=== PATIENT | male | born 1955 ===

== ENCOUNTER 2019-09-29 20:43 | Observation (INO) ==
--- OUTSIDE RECORDS SUMMARY | 2019-09-29 20:46 | External Medical Summary | Continuity of Care Document ---
:1955 Author Name Bella Mohamud, Provider Address Unavailable Unavailable , Care Team Providers Name Role Phone Unavailable Unavailable Unavailable CRISTO Mohamud, VICKI Unavailable Unavailable KRIS Mohamud, ALLEGRA Bonds Unavailable Unavailable Unavailable Unavailable Unavailable Problems Difficulty reading due to visual problem (368.9) (H53.9) Hearing difficulty (389.9) (H91.90) Lyme disease (088.81) (A69.20) Lipid screening (V77.91) (Z13.220) Allergies and Adverse Reactions Codeine Derivatives (Allergy) Medications No Reported Medications , M.D. Refills: 0 Procedures History of Tympanoplasty Status: Complet ed Immunizations Tdap On: 22-Nov-2009 Family History Father Family history of alcohol abuse (V61.41) (Z81.1) Status: Act chantelle uncle Family history of alcohol abuse (V61.41) (Z81.1) Status: Act chantelle Mother Family history of malignant neoplasm (V16.9) (Z80.9) Status: Active Family history of malignant neoplasm of breast (V16.3) (Z80. 3) Status: Active Family history of Colon cancer (153.9) (C18.9) Status: Activ e Plan of Treatment Planned Observations Planned Goals not documented Results No Known Results Results not documented
--- OUTSIDE RECORDS SUMMARY | 2019-09-29 20:46 | External Medical Summary | Continuity of Care Document ---
:1955 Author Name Bella Mohamud, Provider Address Unavailable Unavailable , Care Team Providers Name Role Phone Unavailable Unavailable Unavailable CRISTO Mohamud, VICKI Unavailable Unavailable KRIS Mohamud, ALLEGRA Bonds Unavailable Unavailable Unavailable Unavailable Unavailable Problems Lipid screening (V77.91) (Z13.220) Lyme disease (088.81) (A69.20) Hearing difficulty (389.9) (H91.90) Difficulty reading due to visual problem (368.9) (H53.9) Allergies and Adverse Reactions Codeine Derivatives (Allergy) [...]
[2019-09-29] MEDS ORDERED: SODIUM CHLORIDE 0.9% 1000ML 1,000 ML IV ONE ×2 (20:58→22:02)
[2019-09-29] MEDS ORDERED: ONDANSETRON INJ 2 MG/ML 2 ML VIAL IV STA (21:06)
[2019-09-29 21:25] LABS: Hematocrit (blood only) 55.3 % (42-52); Mean Corpuscular Hemoglobin 32.1 pg (25-34); Mean Corpuscular Volume 88.8 fL (80-100); Mean Platelet Volume 10.4 fL (7.4-10.4); Platelet Count 340 K/uL (130-400); RDW Coefficient of Variation 12.8 % (11.5-14.5); RDW Standard Deviation 41.3 fL (36.4-46.3); Red Blood Count 6.23 M/uL (4.7-6.1); White Blood Count 23.87 K/uL (4.8-10.8)
[2019-09-29 21:35] LABS: Mean Corpuscular Hgb Conc 36.2 g/dL (32-36)
[2019-09-29 21:41] LABS: Albumin Level 4.8 gm/dl (3.4-5.0); BUN Creatinine Ratio 20.8 (10-20); Bilirubin Direct 0.1 mg/dl (0-0.2); Creatinine Clr Calc Pharmacy 19.1 ml/min; Est GFR (African American) 17.2; Est GFR (Non-African American) 14.8; Potassium 5.5 mmol/L (3.5-5.1)
[2019-09-29 21:43] LABS: Appearance Urine Cloudy (Clear); Bacteria Urine Automated Negative (Negative); Bilirubin Urine Negative (Negative); Blood Urine Negative (Negative); Color Urine Dark Yellow; Epithelial Cell Urine Auto 20-30 /lpf (0-5); Glucose Urine UA Negative (Negative); Ketones Urine Trace (Negative); Leukocyte Esterase Urine Negative (Negative); Nitrite Urine Negative (Negative); Protein Urine 1+ (Negative); Urobilinogen Urine Negative (Negative)
[2019-09-29 21:44] LABS: Total Protein 9.8 gm/dl (6.4-8.2)
[2019-09-29 21:58] LABS: Cast Urine Automated >30 /lpf (0-5); RBC Urine Automated 0-4 /hpf (0-4)
[2019-09-29] MEDS ORDERED: INSULIN HUMAN REGULAR PER UNIT 10 UNITS in SYRINGE 9.9 ML IV STA (22:19)
[2019-09-29] MEDS ORDERED: DEXTROSE 50% 50 ML SYRINGE IV STA (22:19)
[2019-09-29] MEDS ORDERED: SODIUM POLYSTYRENE SULFONATE 15G/60ML SUSP PO STA (22:19)
[2019-09-29] MEDS ORDERED: CALCIUM GLUCONATE 10% 1,000 MG in SODIUM CHLORIDE 0.9% 50 ML IV STA (22:19)
[2019-09-29 22:29] LABS: Basophils # (auto) 0.01 K/uL (0-0.2); Immature Granulocytes # (auto) 0.17 K/uL (0.00-0.02); Immature Granulocytes % (auto) 0.7 %; Lymphocytes % (auto) 5.9 %; Monocytes % (auto) 8.8 %; Neutrophils # (auto) 20.19 K/uL (1.4-6.5); Neutrophils % (auto) 84.6 %
[2019-09-30] MEDS: SODIUM CHLORIDE 0.9% 1000ML 1,000 ML IV SCH ×3 (00:14→18:05)
[2019-09-30] MEDS ORDERED: VANCOMYCIN HCL 1,500 MG in SODIUM CHLORIDE 0.9% 500 ML IV ONE (00:22)
[2019-09-30] MEDS ORDERED: CEFEPIME 2,000 MG/20 ML VIAL IV STA (00:22)
[2019-09-30] MEDS ORDERED: VANCOMYCIN CONSULT ACTIVE PRN (00:22)
--- NOTE | 2019-09-30 00:43 | Emergency Department Note ---
Entered by Jamee Aranda acting as a scribe for History of Present Illness General Chief complaint: Illness Stated complaint: ILLNESS Time Seen by Provider: 09/29/19 20:57 Source: patient Mode of arrival: ambulatory Limitations: no limitations History of Present Illness Onset (ago): day(s) 3 Radiation: non-radiation Pain Consistency: + constant Maximum Pain Intensity: 4 Current Pain Intensity: 4 Relieved By: + none Exacerbated By: + none Associated symptoms: + fever/chills (+chills, -fever) and + other (+dysuria, +diarrhea, +muscle pain in rib cage, arms and legs); no nausea/vomiting Treatments prior to arrival: none The patient is a 64 year old male who presents to the ED with complaints of a persistent illness. He states 3 days ago, he experienced diarrhea and the chills. He sat in the shower to try and warm up, until he needed to use the bathroom. He states he had a long, thin bowel movement that was "orange-jaxon" in color. He also complains of dysuria and muscle pain in his rib cage, arms and legs. He has been gagging but denies any vomiting. The patient rates his discomfort as a 4/10 in severity. He states he called his daughter who is a nurs e this evening and she told him to come to the ED. Home Medications Home Medications Medication Instructions Recorded Confirmed Type No Known Home Medications 09/29/19 09/29/19 History Allergies Allergy/AdvReac Type Severity Reaction Status Date / Time codeine Allergy Intermediate n/v Verified 09/29/19 23:10 Past Med/Surg History Medical History No significant past medical history Social History Preferred Language: Georgian Feels Safe at Home: Yes Smoking Status: Never smoker Review of Systems See HPI for pertinent positives & negatives. and A total of 10 systems reviewed and were otherwise negative Physical Exam Vital Signs Vital Signs - 24 hr 09/29/19 20:44 09/29/19 20:50 09/29/19 20:59 Temperature 36.4 C L Temperature Source Oral Pulse Rate 115 H 92 H Pulse Rate [Right Finger] Pulse Rate from SpO2 Sensor Pulse Rhythm Regular Respiratory Rate 22 20 Blood Pressure 129/95 Blood Pressure [Left Arm] Blood Pressure Mean 106 Blood Pressure Mean [Left Arm] Blood Pressure Position [Left Arm] Pulse Oximetry 97 95 Oxygen Delivery Method Room Air Room Air Room Air Sepsis Recent Fever Within 48 Hours No Sepsis New/Unexplained Change in Mental Status No Sepsis Action Taken by Nursing No Action Required 09/29/19 21:49 09/29/19 22:00 09/29/19 22:15 Temperature Temperature Source Pulse Rate 81 78 82 Pulse Rate [Right Finger] Pulse Rate from SpO2 Sensor Pulse Rhythm Respiratory Rate 20 15 20 Blood Pressure Blood Pressure [Left Arm] Blood Pressure Mean Blood Pressure Mean [Left Arm] Blood Pressure Position [Left Arm] Pulse Oximetry Oxygen Delivery Method Sepsis Recent Fever Within 48 Hours Sepsis New/Unexplained Change in Mental Status Sepsis Action Taken by Nursing 09/29/19 22:30 09/29/19 22:45 09/29/19 22:48 Temperature Temperature Source Pulse Rate 88 94 H 91 H Pulse Rate [Right Finger] Pulse Rate from SpO2 Sensor 92 H Pulse Rhythm Respiratory Rate 20 22 24 Blood Pressure 175/118 H Blood Pressure [Left Arm] Blood Pressure Mean 139 Blood Pressure Mean [Left Arm] Blood Pressure Position [Left Arm] Pulse Oximetry 99 Oxygen Delivery Method Sepsis Recent Fever Within 48 Hours Sepsis New/Unexplained Change in Mental Status Sepsis Action Taken by Nursing 09/29/19 23:48 Temperature Temperature Source Pulse Rate Pulse Rate [Right Finger] 105 H Pulse Rate from SpO2 Sensor Pulse Rhythm Respiratory Rate 18 Blood Pressure Blood Pressure [Left Arm] 157/102 H Blood Pressure Mean Blood Pressure Mean [Left Arm] 120 Blood Pressure Position [Left Arm] Sitting Pulse Oximetry 98 Oxygen Delivery Method Room Air Sepsis Recent Fever Within 48 Hours Sepsis New/Unexplained Change in Mental Status Sepsis Action Taken by Nursing GENERAL: He is oriented to person, place, and time. He appears well-developed and well-nourished. He does not appear distressed. HENT: Exam performed. - Head: Normocephalic and atraumatic. - Right Ear: External ear normal. No mastoid tenderness. - Left Ear: External ear normal. No mastoid tenderness. - Mouth/Throat: The oropharynx is clear and moist. No trismus in the jaw. No dental abscesses or uvula swelling. No oropharyngeal exudate or tonsillar abscesses. EYES: Conjunctivae and EOM are normal. Pupils are equal, round, and reactive to light. Right eye exhibits no discharge. Left eye exhibits no discharge. No scleral icterus. NECK: Normal range of motion. Neck supple. No JVD present. No spinous process tenderness present. No carotid bruit present. No rigidity. No tracheal deviation and normal range of motion present. No Brudzinski's sign and no Kernig's sign noted. CV: Tachycardic rate, regular rhythm, normal heart sounds and intact distal pulses. There is no peripheral edema. Palpable radial pulses bue. PULM/CHEST: Effort normal and breath sounds normal. No respiratory distress. No stridor. He has no wheezes. He has no rales. - Chest Wall: He exhibits no tenderness. ABD: The abdomen is soft. Bowel sounds are normal. He has no distension. No mass is present. There is no tenderness. There is no rebound, no guarding, no Jessica's sign and no tenderness at McBurney's point. Rovsig negative. MUSC/SKEL: Normal range of motion. There is no peripheral edema, tenderness or deformity. LYMPH: No cervical adenopathy. NEURO: He is alert and oriented to person, place, and time. He has normal strength. No cranial nerve deficit or sensory deficit. Coordination and gait normal. GCS eye subscore is 4. GCS verbal subscore is 5. GCS motor subscore is 6. Cerebellar tests wnl. SKIN: Skin is warm and dry. He is not diaphoretic. PSYCH: He has a normal mood and affect. Behavior is normal. Judgment and thought content normal. Course Course 2103: The patient was evaluated in room B11 and a complete history and physical were performed. 2204: Vital signs stable. Abs show leukocytosis of 23.87. Hemoglobin of 20. Sodium 124. Potassium 5.5. Creatinine 4.04. Urinalysis is not consistent with infection. At this time, it is thought that the patient's leukocytosis could be due to dehydration or sepsis. Given this, patient will be given a total of 30 cc/kg fluid bolus. Additional fluids ordered. Blood cultures will be sent. Lactic acid is still pending. EKG shows peaked T waves. Patient will be treated with calcium gluconate, Kayexalate, insulin 10 units regular IV push and 1 amp of D50. Garza catheter will be placed given the patient's acute kidney injury to measure urine output. Patient also have a CT of the abdomen as well as chest x-ray done to look for any potential infectious sources. 2235: Vital signs stable. Lactic acid 3.6. Patient is still receiving fluid bolus and after fluid bolus is completed a repeat lactic acid will be done. 0028: Vital signs are stable. Status post 30 CC per Kilo Bolus improved Lactate to 2.2. CT of the abdomen showed no obstructing calculi. X-Ray showed no pneumonia. Patient will be admitted and treated with IV Vancomycin and Cefepime empirically for sepsis. He has been admitted to Dr. Abad. I discussed the patients case with Dr. Abad, [facility] Hospitalist. The patient will be further evaluated. Administered Medications Sodium Chloride (Nss 1000ml) 1,000 mls @ 125 mls/hr IV .Q8H DEVIN Stop: 10/29/19 23:44 Last Admin: 09/30/19 00:14 Dose: 125 mls/hr Documented by: [id number] Discontinued Medications Dextrose (Dextrose 50%) 50 ml IV NOW STA Stop: 09/29/19 22:20 Last Admin: 09/29/19 23:03 Dose: 50 ml Documented by: [id number] Sodium Chloride (Nss 1000ml) 1,000 mls @ 999 mls/hr IV .Q1H1M ONE Stop: 09/29/19 21:58 Last Infusion: 09/29/19 22:35 Dose: 0 mls/hr Documented by: [id number] Admin: 09/29/19 21:31 Dose: 999 mls/hr Documented by: [id number] Sodium Chloride (Nss 1000ml) 1,000 mls @ 999 mls/hr IV .Q1H1M ONE Stop: 09/29/19 23:02 Last Infusion: 09/29/19 23:30 Dose: 0 mls/hr Documented by: [id number] Admin: 09/29/19 22:16 Dose: 999 mls/hr Documented by: [id number] Calcium Gluconate 1,000 mg/ (Sodium Chloride) 60 mls @ 240 mls/hr IV NOW STA Stop: 09/29/19 22:33 Last Infusion: 09/29/19 23:33 Dose: 0 mls/hr Documented by: [id number] Admin: 09/29/19 23:11 Dose: 240 mls/hr Documented by: [id number] Insulin Human Regular 10 units (/ Syringe) 9.9 mls @ 3 mls/sec IV ONE STA Stop: 09/29/19 22:20 Last Admin: 09/29/19 23:03 Dose: 3 mls/sec Documented by: [id number] Cosigned by: [id number] Cefepime HCl (Maxipime) 2,000 mg in 20 mls @ 5 mls/min IV NOW STA; Protocol Stop: 09/30/19 00:25 Last Admin: 09/30/19 00:30 Dose: 5 mls/min Documented by: [id number] Ondansetron HCl (Zofran) 4 mg IV NOW STA Stop: 09/29/19 21:07 Last Admin: 09/29/19 21:31 Dose: 4 mg Documented by: [id number] Sodium Polystyrene Sulfonate (Kayexalate) 15 gm PO NOW STA Stop: 09/29/19 22:20 Last Admin: 09/29/19 23:15 Dose: 15 gm Documented by: [id number] Critical Care Time Critical Care Time: Yes Total Critical Care Time: 76 I have personally spent 76 minutes of critical care time in the direct management of this patient. This includes bedside care, interpretation of diagnostic studies, and testing, discussion with consultants, patient, and family members, and other required patient management activities. This 76 minutes is in excess of all separately billable procedures. Medical Decision Making Medical Records Attestation: I reviewed the patient's medical records. Home Medications Current Medication List: was personally reviewed by me Laboratory Data Attestation: I reviewed the patient's lab results. Result diagrams: 09/29/19 21:06 09/29/19 21:06 Lab Results 09/29/19 09/29/19 09/29/19 Range/Units 21:06 21:06 21:06 WBC 23.87 H (4.8-10.8) K/uL RBC 6.23 H (4.7-6.1) M/uL Hgb 20.0 H (14.0-18.0) g/dL Hct 55.3 H (42-52) % MCV 88.8 (80-100) fL MCH 32.1 (25-34) pg MCHC 36.2 H (32-36) g/dL RDW Std Deviation 41.3 (36.4-46.3) fL RDW Coeff of Tatiana 12.8 (11.5-14.5) % Plt Count 340 (130-400) K/uL MPV 10.4 (7.4-10.4) fL Immature Gran % (Auto) 0.7 % Neut % (Auto) 84.6 % Lymph % (Auto) 5.9 % [place] % (Auto) 8.8 % Eos % (Auto) 0.0 % Baso % (Auto) 0.0 % Immature Gran # (Auto) 0.17 H (0.00-0.02) K/uL Neut # (Auto) 20.19 H (1.4-6.5) K/uL Lymph # (Auto) 1.40 (1.2-3.4) K/uL [place] # (Auto) 2.10 H (0.11-0.59) K/uL Eos # (Auto) 0.00 (0-0.5) K/uL Baso # (Auto) 0.01 (0-0.2) K/uL Sodium 124 L (136-145) mmol/L Potassium 5.5 H (3.5-5.1) mmol/L Chloride 92 L (98-107) mmol/L Carbon Dioxide 19 L (21-32) mmol/L Anion Gap 14.0 H (3-11) BUN 84 H (7-18) mg/dl Creatinine 4.04 H (0.6-1.4) mg/dl Est Cr Clr Drug Dosing 19.1 ml/min Est GFR ( Amer) 17.2 Est GFR (Non-Af Amer) 14.8 BUN/Creatinine Ratio 20.8 H (10-20) Glucose 180 H (70-99) mg/dl Lactate 3.6 H* (0.4-2.0) mmol/L Calcium 10.0 (8.5-10.1) mg/dl Total Bilirubin 1.0 (0.2-1) mg/dl Direct Bilirubin 0.1 (0-0.2) mg/dl AST 45 H (15-37) U/L ALT 28 (12-78) U/L Alkaline Phosphatase 111 (45-117) U/L Total Protein 9.8 H (6.4-8.2) gm/dl Albumin 4.8 (3.4-5.0) gm/dl Lipase 369 (73-393) U/L Urine Color Urine Appearance (Clear) Urine pH (4.5-7.5) Ur Specific [place] (1.000-1.030) Urine Protein (Negative) Urine Glucose (UA) (Negative) Urine Ketones (Negative) Urine Blood (Negative) Urine Nitrite (Negative) Urine Bilirubin (Negative) Urine Urobilinogen (Negative) Ur Leukocyte Esterase (Negative) Urine WBC (Auto) (0-5) /hpf Urine RBC (Auto) (0-4) /hpf U Hyaline Cast (Auto) (0-5) /lpf U Epithel Cells (Auto) (0-5) /lpf Urine Bacteria (Auto) (Negative) Urine Yeast 09/29/19 09/29/19 Range/Units 21:15 23:01 WBC (4.8-10.8) K/uL RBC (4.7-6.1) M/uL Hgb (14.0-18.0) g/dL Hct (42-52) % MCV (80-100) fL MCH (25-34) pg MCHC (32-36) g/dL RDW Std Deviation (36.4-46.3) fL RDW Coeff of Tatiana (11.5-14.5) % Plt Count (130-400) K/uL MPV (7.4-10.4) fL Immature Gran % (Auto) % Neut % (Auto) % Lymph % (Auto) % [place] % (Auto) % Eos % (Auto) % Baso % (Auto) % Immature Gran # (Auto) (0.00-0.02) K/uL Neut # (Auto) (1.4-6.5) K/uL Lymph # (Auto) (1.2-3.4) K/uL [place] # (Auto) (0.11-0.59) K/uL Eos # (Auto) (0-0.5) K/uL Baso # (Auto) (0-0.2) K/uL Sodium (136-145) mmol/L Potassium (3.5-5.1) mmol/L Chloride (98-107) mmol/L Carbon Dioxide (21-32) mmol/L Anion Gap (3-11) BUN (7-18) mg/dl Creatinine (0.6-1.4) mg/dl Est Cr Clr Drug Dosing ml/min Est GFR ( Amer) Est GFR (Non-Af Amer) BUN/Creatinine Ratio (10-20) Glucose (70-99) mg/dl Lactate 2.2 H* (0.4-2.0) mmol/L Calcium (8.5-10.1) mg/dl Total Bilirubin (0.2-1) mg/dl Direct Bilirubin (0-0.2) mg/dl AST (15-37) U/L ALT (12-78) U/L Alkaline Phosphatase (45-117) U/L Total Protein (6.4-8.2) gm/dl Albumin (3.4-5.0) gm/dl Lipase (73-393) U/L Urine Color Dark Yellow Urine Appearance Cloudy A (Clear) Urine pH 5.0 (4.5-7.5) Ur Specific [place] 1.030 (1.000-1.030) Urine Protein 1+ H (Negative) Urine Glucose (UA) Negative (Negative) Urine Ketones Trace H (Negative) Urine Blood Negative (Negative) Urine Nitrite Negative (Negative) Urine Bilirubin Negative (Negative) Urine Urobilinogen Negative (Negative) Ur Leukocyte Esterase Negative (Negative) Urine WBC (Auto) 1-5 (0-5) /hpf Urine RBC (Auto) 0-4 (0-4) /hpf U Hyaline Cast (Auto) >30 H (0-5) /lpf U Epithel Cells (Auto) 20-30 H (0-5) /lpf Urine Bacteria (Auto) Negative (Negative) Urine Yeast Not Reportable Imaging Data My Impression: CHEST X-RAY Airway is clear. No acute infiltrate. No pneumothorax. No bony fracture. No free air under the diaphragm. X-Ray is negative. Emphysematous change. Radiologist's Impression: Radiology results as stated below per my review and the radiologist's interpretation: CT ABDOMEN PELVIS WITHOUT CONTRAST No hydronephrosis or ureterolithiasis is seen. Bowel loops are nondilated. The appendix is normal. No acute focal inflammatory changes are seen within the abd omen or pelvis. No inguinal hernia or acute inflammatory process seen within the left groin. Radiologist: Dr. Abhi Isabel MD ECG Data Attestation: I personally reviewed and interpreted this ECG as follows: Indication: + weakness Rate (beats per minute): 79 Rhythm: + sinus rhythm ECG Intervals/blocks: + Normal QRS, + Normal OR and + Normal QT-c ECG ST segments: no ST depression and no ST elevation ECG Findings: + Peaked T waves (from leads V3 to V5) Blood Pressure Blood Pressure Findings: Elevated blood pressure Blood Pressure Disposition: further management by hospitalist ROB Narrative 2103: The patient was evaluated in room B11 and a complete history and physical were performed. 2205: Vital signs stable. Abs show leukocytosis of 23.87. Hemoglobin of 20. Sodium 124. Potassium 5.5. Creatinine 4.04. Urinalysis is not consistent with infection. At this time, it is thought that the patient's leukocytosis could be due to dehydration or sepsis. Given this, patient will be given a total of 30 cc/kg fluid bolus. Additional fluids ordered. Blood cultures will be sent. Lactic acid is still pending. EKG shows peaked T waves. Patient will be destinee ated with calcium gluconate, Kayexalate, insulin 10 units regular IV push and 1 amp of D50. Garza catheter will be placed given the patient's acute kidney injury to measure urine output. Patient also have a CT of the abdomen as well as chest x-ray done to look for any potential infectious sources. 2235: Vital signs stable. Lactic acid 3.6. Patient is still receiving fluid bolus and after fluid bolus is completed a repeat lactic acid will be done. 0028: Vital signs are stable. Status post 30 CC per Kilo Bolus improved Lactate to 2.2. CT of the abdomen showed no obstructing calculi. X-Ray showed no pneumonia. Patient will be admitted and treated with IV Vancomycin and Cefepime empirically for sepsis. He has been admitted to Dr. Abad. I discussed the patients case with Dr. Abad, [facility] Hospitalist. The patient will be further evaluated. Impression & Plan Hyperkalemia, SUSANA (acute kidney injury), Sepsis, Hyponatremia Discharge Plan Visit Data Chief Complaint: Illness Stated Complaint: ILLNESS ED Provider: Jasper Nicole Discharge Problem: Hyperkalemia, SUSANA (acute kidney injury), Sepsis, Hyponatremia Forms Stand Alone Forms: My [facility] Prescriptions Prescriptions: No Action No Known Home Medications RF: 0 The scribe's documentation has been prepared under my direction and personally reviewed by me in its entirety. I confirm that the note above accurately reflects all work, treatment, procedures, and medical decision making performed by me.
--- NOTE | 2019-09-30 01:21 | History & Physical Report ---
Date of Service September 30, 2019 Assessment & Plan (1) Sepsis: Sepsis due to presumed prostatitis/moderately severe dehydration/BPH with OBST,LUTS- Patient did receive 2 L normal saline bolus per septic protocol in the ED. Continue normal saline 125 mils per hour. Follow urine culture and sensitivity. Follow blood cultures. Patient was given vancomycin IV and cefepime IV in the ED. Present on Admission?: Yes (2) SUSANA (acute kidney injury): See above Continue IV fluid rehydration as noted above. Continue treatment for postobstructive process. Discontinue vancomycin IV after first dose received in ED. Placed on daptomycin IV and ceftriaxone IV. Present on Admission?: Yes (3) BPH loc w urin obs/LUTS: Patient will be given first dose of tamsulosin 0.4 mg in the ED, and then at bedtime Present on Admission?: Yes (4) Hyperkalemia: Potassium level was 5.5 upon admission. He received 2 L normal saline, Kayexalate, calcium gluconate 1 g IV and 1 amp of D50 with 10 units of regular insulin IV as ordered by the ED. We will continue normal saline, and repeat laboratories in the a.m. Present on Admission?: Yes (5) Hyponatremia: Hyponatremia secondary to acute kidney injury due to moderately severe dehydration. Continue normal saline IV. Repeat laboratories in the a.m. Present on Admission?: Yes (6) Dehydration, moderate: Rehydration as noted above. Present on Admission?: Yes (7) Urinary retention with incomplete bladder emptying: Continue Garza catheter placed in the ED. We will give tamsulosin 0.4 mg p.o. x1 now, and then at bedtime. Consult urology. Present on Admission?: Yes History of Present Illness Chief Complaint: The patient presents to the emergency department, due to the urging of his daughter, due to 3 days of intermittent fevers, chills and shakes, during which time he would treat himself by taking intermittent warm soaks. Primary Care Provider: Daksha Franco MD The patient is a 64-year-old male with no significant past medical history, who presents to the emergency department with 3 days of persistent symptoms of intermittent fevers, chills and shakes. He denies any recent travels or sick exposures. He had significantly decreased oral intake to both liquids and solids during this time as well. Work-up in the emergency department included abnormal laboratories suggesting acute neutrophilic leukocytosis, hyperglycemia, lactic acidosis, acute renal failure and polycythemia, suggestive of significant dehydration. Imaging studies included CT of the abdomen pelvis which showed thick-walled urinary bladder. Patient did have Garza catheter placed in the ED. For a potassium of 5.5, he was given, in addition to the septic protocol 2 L normal saline, he was also given 1 amp of D50 +10 units of regular insulin IV, calcium gluconate 1 g IV and Kayexalate by the ED protocols. The patient also did report frequent bowel movements and urination as he was attempting to treat himself with frequent soaks, interspersed with resting in bed. Allergies Allergy/AdvReac Type Severity Reaction Status Date / Time codeine Allergy Intermediate n/v Verified 09/29/19 23:10 Home Medications Home Medications Medication Instructions Recorded Confirmed Type No Known Home Medications 09/29/19 09/29/19 History Past Med/Surg History Medical History No significant past medical history Social History Preferred Language: Colombian Communication Ability: Effective Physician Primary Care Sports Medicine Required: No Beliefs That Will Affect Care: None Current Living Situation: Family Other Information That Helps Us Care for You: No Feels Safe at Home: Yes Safety Concerns: Feels Safe At This Time Smoking Status: Never smoker Hx Alcohol Use: No Hx Substance Use: No Review of Systems Review of Systems: The patient denies chest pain, palpitations, shortness of breath, dyspnea on exertion, cough, lower extremity swelling, sore throat, nausea, vomiting, blood in urine or stool, dysuria, lightheadedness, dizziness, headache, memory loss, loss of consciousness, rash, abnormal bruising or bleeding, imbalance, focal weakness, numbness or tingling in arms or legs, generalized arthralgias or myalgias, back or neck pain, or night sweats. The review of systems is otherwise negative other than for that already noted above, and at least 10 systems have been reviewed. Physical Exam Physical Exam: The patient is awake, alert and oriented 3, well developed and well nourished, normocephalic and atraumatic, lying in bed and in no acute distress. HEENT--PERRL, EOMI, mucous membranes and oropharynx dry. Neck--supple. No JVD. No bruits. Thyroid normal, trachea midline, no adenopathy. Heart--normal S1 and S2. No murmurs, rubs or gallops. Lungs--clear bilaterally, no respiratory distress, no accessory muscle use. Abdomen--normal bowel sounds and soft. Nontender. Nondistended, no hernias or masses, no organomegaly. Extremities--no cyanosis or clubbing. No edema. Dermatologic--normal skin turgor, normal color, no abnormal lymph nodes, no rash. Neurologic--cranial nerves II through XII grossly intact. Rheumatologic--normal range of motion. Psychiatric--normal affect. Results & Data Vital Signs (Past 12 Hours) Vital Signs Temp Pulse Pulse Resp BP BP Pulse Ox 09/30/19 00:45 91 H 14 95 09/30/19 00:30 89 14 95 09/30/19 00:16 98 H 16 95 09/30/19 00:15 94 H 17 156/100 H 94 09/30/19 00:01 98 H 14 159/102 H 96 09/30/19 00:00 100 H 19 97 09/29/19 23:48 105 H 18 157/102 H 98 09/29/19 23:46 95 H 22 97 09/29/19 23:45 104 H 19 157/102 H 97 09/29/19 23:44 19 09/29/19 23:16 105 H 24 09/29/19 23:15 92 H 25 H 176/102 H 09/29/19 23:00 90 24 163/104 H 98 09/29/19 22:48 91 H 24 175/118 H 99 09/29/19 22:45 94 H 22 09/29/19 22:30 88 20 09/29/19 22:15 82 20 09/29/19 22:00 78 15 09/29/19 21:49 81 20 09/29/19 20:59 92 H 20 95 09/29/19 20:50 97.5 F L 115 H 22 129/95 97 Laboratory Results Laboratory Results WBC 23.87 K/uL (4.8-10.8) H 09/29/19 21:06 RBC 6.23 M/uL (4.7-6.1) H 09/29/19 21:06 Hgb 20.0 g/dL (14.0-18.0) H 09/29/19 21:06 Hct 55.3 % (42-52) H 09/29/19 21:06 MCV 88.8 fL (80-100) 09/29/19 21:06 MCH 32.1 pg (25-34) 09/29/19 21:06 MCHC 36.2 g/dL (32-36) H 09/29/19 21:06 RDW Std Deviation 41.3 fL (36.4-46.3) 09/29/19 21:06 RDW Coeff of Tatiana 12.8 % (11.5-14.5) 09/29/19 21:06 Plt Count 340 K/uL (130-400) 09/29/19 21:06 MPV 10.4 fL (7.4-10.4) 09/29/19 21:06 Immature Gran % (Auto) 0.7 % 09/29/19 21:06 Neut % (Auto) 84.6 % 09/29/19 21:06 Lymph % (Auto) 5.9 % 09/29/19 21:06 Mcpherson % (Auto) 8.8 % 09/29/19 21:06 Eos % (Auto) 0.0 % 09/29/19 21:06 Baso % (Auto) 0.0 % 09/29/19 21:06 Immature Gran # (Auto) 0.17 K/uL (0.00-0.02) H 09/29/19 21:06 Neut # (Auto) 20.19 K/uL (1.4-6.5) H 09/29/19 21:06 Lymph # (Auto) 1.40 K/uL (1.2-3.4) 09/29/19 21:06 Mcpherson # (Auto) 2.10 K/uL (0.11-0.59) H 09/29/19 21:06 Eos # (Auto) 0.00 K/uL (0-0.5) 09/29/19 21:06 Baso # (Auto) 0.01 K/uL (0-0.2) 09/29/19 21:06 Sodium 124 mmol/L (136-145) L 09/29/19 21:06 Potassium 5.5 mmol/L (3.5-5.1) H 09/29/19 21:06 Chloride 92 mmol/L (98-107) L 09/29/19 21:06 Carbon Dioxide 19 mmol/L (21-32) L 09/29/19 21:06 Anion Gap 14.0 (3-11) H 09/29/19 21:06 BUN 84 mg/dl (7-18) H 09/29/19 21:06 Creatinine 4.04 mg/dl (0.6-1.4) H 09/29/19 21:06 Est Cr Clr Drug Dosing 19.1 ml/min 09/29/19 21:06 Est GFR ( Amer) 17.2 09/29/19 21:06 Est GFR (Non-Af Amer) 14.8 09/29/19 21:06 BUN/Creatinine Ratio 20.8 (10-20) H 09/29/19 21:06 Glucose 180 mg/dl (70-99) H 09/29/19 21:06 POC Glucose 115 mg/dl (70-99) H 09/30/19 00:49 Lactate 2.2 mmol/L (0.4-2.0) H* 09/29/19 23:01 Calcium 10.0 mg/dl (8.5-10.1) 09/29/19 21:06 Magnesium 3.8 mg/dl (1.8-2.4) H 09/29/19 21:06 Total Bilirubin 1.0 mg/dl (0.2-1) 09/29/19 21:06 Direct Bilirubin 0.1 mg/dl (0-0.2) 09/29/19 21:06 AST 45 U/L (15-37) H 09/29/19 21:06 ALT 28 U/L (12-78) 09/29/19 21:06 Alkaline Phosphatase 111 U/L (45-117) 09/29/19 21:06 Total Protein 9.8 gm/dl (6.4-8.2) H 09/29/19 21:06 Albumin 4.8 gm/dl (3.4-5.0) 09/29/19 21:06 Lipase 369 U/L (73-393) 09/29/19 21:06 Urine Color Dark Yellow 09/29/19 21:15 Urine Appearance Cloudy (Clear) A 09/29/19 21:15 Urine pH 5.0 (4.5-7.5) 09/29/19 21:15 Ur Specific [place] 1.030 (1.000-1.030) 09/29/19 21:15 Urine Protein 1+ (Negative) H 09/29/19 21:15 Urine Glucose (UA) Negative (Negative) 09/29/19 21:15 Urine Ketones Trace (Negative) H 09/29/19 21:15 Urine Blood Negative (Negative) 09/29/19 21:15 Urine Nitrite Negative (Negative) 09/29/19 21:15 Urine Bilirubin Negative (Negative) 09/29/19 21:15 Urine Urobilinogen Negative (Negative) 09/29/19 21:15 Ur Leukocyte Esterase Negative (Negative) 09/29/19 21:15 Urine WBC (Auto) 1-5 /hpf (0-5) 09/29/19 21:15 Urine RBC (Auto) 0-4 /hpf (0-4) 09/29/19 21:15 U Hyaline Cast (Auto) >30 /lpf (0-5) H 09/29/19 21:15 U Epithel Cells (Auto) 20-30 /lpf (0-5) H 09/29/19 21:15 Urine Bacteria (Auto) Negative (Negative) 09/29/19 21:15 Urine Yeast Not Reportable 09/29/19 21:15 Influenza Type A Ag Neg for Influ A (Neg) 09/30/19 02:35 Influenza Type B Ag Neg for Influ B (Neg) 09/30/19 02:35 Diagnostic Findings [facility] Patient: SUNG BEST (Male) : 59 Status: ER Date: 09/29/19 23:44 Room #: History: FEELS LIKE CATH IS LEAKING, FEVER Slices: 527 Priors: Tech: Sharif Velazquez @ [phone] Exams: CT ABDOMEN & PELVIS Without Contrast Accession Numbers: [id number] Preliminary Findings Only See Final Report For Complete Findings CT ABDOMEN & PELVIS Without Contrast: Mild bilateral basilar emphysematous lung change. Mild right coronary calcification Questionable gallbladder sludge. The right kidney midpole and lateral lower pole subcentimeter cortical low- density, cyst. Left kidney anterior midpole, medial cyst. Dependent nonobstructive 4 mm calcification. Additional posterior lower pole cyst measuring 3 cm. Retroperitoneum: Dominant left-sided IVC. Mild atherosclerotic calcification of abdominal aorta. Bowel: Unremarkable Pelvis: Garza catheter and nondistended urinary bladder Bones: Multilevel facet degenerative changes bilateral L5 pars interarticularis defect. Mild bilateral hip joint degenerative change. Impression: 1. Garza catheter in nondistended thick-walled urinary bladder. 2. No acute intra-abdominal pelvic finding. 3. Nonobstructive left kidney midpole 4 mm stone and left renal cysts. Radiologist: Robert Polanco MD Study ready at 23:47 and initial results transmitted at 00:19 *This report constitutes a preliminary interpretation only. Non-acute findings felt to be unrelated to the clinical presentation may not be discussed in this report. The study will be interpreted and a final report will be generated by the local Radiologist the following shift. To reach the hospital radiology department call [phone]. If a discrepancy is found between the preliminary and final interpretations of this study, please notify us via our Client Portal at [email or web address], under QA [email or web address].You can also fax this report with a description of the discrepancy, or include the final report, to our daytime fax number [phone].If faxing, please indicate the severity of discrepancy using one of the following categories: [ ] 1 - Agree/Informational [ ] 2 - Unlikely to Affect Management [ ] 3 - Possible Eventual Change of Management [ ] 4 - Probable Immediate Change of Management For all other patient related information, please fax us at [phone]. [id number] Code Status & VTE Plan Code Status Full code VTE Prophylaxis Plan VTE Prophylaxis will be ordered: Yes PG Care Time/CCT Total # of Minutes Spent Total Time Spent with Patient: Total time spent is greater than 50% in coordination of care (as documented) at patient's floor/unit and/or counseling patient: Coding Level of Care Code 88544 Initial Inpt Care Lvl 3 Diagnoses Sepsis A41.9 SUSANA (acute kidney injury) N17.9 BPH loc w urin obs/LUTS N40.1 Hyperkalemia E87.5 Hyponatremia E87.1 Dehydration, moderate E86.0 Urinary retention with incomplete bladder emptying R33.9
[2019-09-30] MEDS ORDERED: TAMSULOSIN HCL 0.4 MG CAP PO STA (01:23)
[2019-09-30 01:31] LABS: Magnesium 3.8 mg/dl (1.8-2.4)
[2019-09-30] MEDS ORDERED: ALUMINUM/MAGNESIUM SUSP 30 ML UDC PO PRN (02:20)
[2019-09-30] MEDS ORDERED: MAGNESIUM HYDROXIDE SUSP 30 ML UDC PO PRN (02:20)
[2019-09-30] MEDS ORDERED: ACETAMINOPHEN 325 MG TAB PO PRN (02:20)
[2019-09-30] MEDS ORDERED: DAPTOmycin 325 MG in SYRINGE 0 ML IV ONE (02:20)
[2019-09-30] MEDS ORDERED: ONDANSETRON INJ 2 MG/ML 2 ML VIAL IV PRN ×2 (02:20→16:13)
[2019-09-30] MEDS ORDERED: DAPTOMYCIN CONSULT ACTIVE PRN (02:51)
[2019-09-30] MEDS ORDERED: DAPTOmycin 450 MG in SYRINGE 0 ML IV SCH (04:00)
[2019-09-30 05:41] LABS: Basophils # (auto) 0.01 K/uL (0-0.2); Hematocrit (blood only) 47.7 % (42-52); Hemoglobin 16.7 g/dL (14.0-18.0); Immature Granulocytes % (auto) 0.5 %; Mean Corpuscular Hemoglobin 31.3 pg (25-34); Mean Corpuscular Volume 89.3 fL (80-100); Mean Platelet Volume 10.1 fL (7.4-10.4); Monocytes # (auto) 2.74 K/uL (0.11-0.59); Monocytes % (auto) 13.6 %; Neutrophils # (auto) 16.06 K/uL (1.4-6.5); Neutrophils % (auto) 79.9 %; Platelet Count 240 K/uL (130-400); RDW Coefficient of Variation 12.9 % (11.5-14.5); Red Blood Count 5.34 M/uL (4.7-6.1); White Blood Count 20.11 K/uL (4.8-10.8)
[2019-09-30 06:22] LABS: Albumin Level 3.4 gm/dl (3.4-5.0); BUN Creatinine Ratio 26.6 (10-20); Calcium 8.3 mg/dl (8.5-10.1); Creatinine Clr Calc Pharmacy 29.2 ml/min; Est GFR (African American) 27.9; Est GFR (Non-African American) 24.1; Phosphorus 4.2 mg/dl (2.5-4.9); Potassium 4.5 mmol/L (3.5-5.1)
--- NOTE | 2019-09-30 07:18 | XRay Report ---
XR chest 1V portable CLINICAL HISTORY: Fever. Evaluate for pneumonia. COMPARISON STUDY: No previous studies for comparison. FINDINGS: Lung volumes are normal. Lungs are clear. There is no pneumothorax or pleural effusion. Car diac size is normal. Mediastinal contours are normal. There is no evidence for pulmonary edema. IMPRESSION: No acute cardiopulmonary findings. ACT 112: Negative or not required by law. Electronically signed by: Donald Jefferson M.D. 09/30/2019 7:16 AM
--- NOTE | 2019-09-30 07:29 | CT Scan Report ---
ABDOMEN AND PELVIS CT WITHOUT CONTRAST CT DOSE: 320.23 mGy.cm HISTORY: Acute dysuria with fever dysuria fever TECHNIQUE: Multiaxial CT images of the abdomen and pelvis were performed without contrast. A dose lo wering technique was utilized adhering to the principles of ALARA. COMPARISON STUDY: Chest radiograph of same day FINDINGS: Moderate emphysema with bronchitis. No pneumatosis or pneumoperitoneum. Coronary arterial calcificati ons are noted. No pericardial effusion. Limited evaluation of the solid abdominal organs without the use of IV contrast. Spleen, pancreas and right adrenal gland are unremarkable. Mild leftward gland th ickening suggests hyperplasia. Equivocal gallbladder sludge. No cholelithiasis or sonographic evidenc e of acute cholecystitis. Unenhanced liver is unremarkable. Mild to moderate left-sided hydroureteronephrosis secondary to an obstructing 5 x 4 x 5 mm calculus o f the left ureter at the level of L5, image 241 series 3. 5 mm nonobstructing calculus of the inferio r pole left kidney. There are several hypodensities of the left kidney suggestive of probable cysts m easuring up to 5.2 cm. Mild perinephric and periureteral inflammatory stranding. Bladder wall thicken ing with Garza catheter in place. Air within the bladder lumen is likely secondary to instrumentation . Prostamegaly. Suggestion of a small fat filled left inguinal hernia. Calcified plaque of the abdomi nal aorta without aneurysm. Left-sided IVC. No adenopathy. No bowel obstruction or bowel wall thickening. Terminal ileum and appendix are unremarkable. Tiny fa t filled periumbilical hernia. Unremarkable soft tissues. Degenerative changes of the spine, pelvis a nd hips includes severe disc space narrowing at L4-L5 and L5-S1. IMPRESSION: 1. Mild to moderate left-sided hydroureteronephrosis secondary to a 5 x 4 x 5 mm calculus of the mid left ureter at the level of L5. This finding was called/faxed to the floor at time of dictation. 2. Nonobstructing left nephrolithiasis. 3. Multiple left-sided renal hypodensities suggest probable cyst. 4. No bowel obstruction or bowel wall thickening. 5. Left-sided IVC. 6. Additional findings as above. ACT 112: Negative or not required by law. The above report was generated using voice recognition software. It may contain grammatical, syntax o r spelling errors. Electronically signed by: Giacomo Mckeon M.D. 09/30/2019 7:28 AM
[2019-09-30] MEDS: cefTRIAXone SODIUM 1,000 MG in DEXTROSE 5% 50 ML IV SCH (08:48)
--- NOTE | 2019-09-30 09:12 | Urology Consultation ---
Date of Consultation September 30, 2019 Assessment & Plan (1) Sepsis: (2) SUSANA (acute kidney injury): (3) BPH loc w urin obs/LUTS: (4) Left ureteral stone: 64 year-old male patient admitted with sepsis, suspected prostatitis, SUSANA, and 5mm obstructing left mid ureteral stone. -Continue Flomax -Continue IV resuscitation -Continue Connolly catheter -Patient last ate at 7:30 am - reports "5 bites of eggs and half piece of toast". -Given patient ate breakfast and appears non-toxic on exam with stable vital signs, will plan for procedure this evening. -Maintain NPO status now Findings reviewed with Dr. Parker. Given his SUSANA with hydronephrosis in the context of an obstructing 5 mm left mid ureteral stone stone, will proceed with OR for cysto, left retrograde pyelogram and left stent placement. Risks and benefits to be reviewed with patient by Dr. Parker. OR notified. Preoperative CXR and EKG obtained. Patient currently covered with IV Daptomycin and IV Ceftriaxone. Please consult our service urgently if patient develops fever >101F, intractable pain or nausea, as this will necessitate urgent surgical intervention. Thank you for the consultation and we will continue to monitor closely with primary service. This was reviewed with bedside nurse during time of consult. History of Present Illness Reason for Consultation: BPH with OBS/LUTS Acute renal failure Obstructing ureteral stone Attending Physician: Easton Farley DO History of Present Illness 64 year-old male patient, with no reported past medical history, admitted to hospitalist service on 09/30/19 with sepsis, acute kidney injury, BPH with obstructing LUTS, and left ureteral stone. Patient reports he had a 3-4 day history of fevers, chills, sweats, and shakes. Also reported bilateral lower abdominal/back pain, dysuria, and urinary hesitancy. Chart review: WBC 20.11 (23.87 on admission) Hgb 16.7 Creatinine 2.71 (4.04 on admission) Lactate 2.2 Blood cultures pending Urine cultures pending CT abd/pelvis: 1. Mild to moderate left-sided hydroureteronephrosis secondary to a 5 x 4 x 5 mm calculus of the mid left ureter at the level of L5. This finding was called/faxed to the floor at time of dictation. 2. Nonobstructing left nephrolithiasis. 3. Multiple left-sided renal hypodensities suggest probable cyst. 4. No bowel obstruction or bowel wall thickening. 5. Left-sided IVC. 6. Additional findings as above. Patient does not regularly follow with a primary care provider. Has not been seen by urologist in the past. Patient awake and alert at time of exam. Reports he is feeling better since admission with IV hydration and IV antibiotics. Currently on IV Dapto and IV Ceftriaxone. Connolly catheter placed in ED due to urinary retention. Patient tolerating connolly without issues - draining clear yellow urine. Afebrile this am. Non toxic appearing. Reports sweating overnight. Denies nausea or vomiting. Patient started on Flomax by primary team. Denies history of hematuria or significant urinary symptoms. Denies history of obtaining PSA. States he has not had PANKAJ performed in the past. Patient does report he did eat some breakfast this morning. Denies additional concerns this morning. Allergies Allergy/AdvReac Type Severity Reaction Status Date / Time codeine Allergy Intermediate n/v Verified 09/29/19 23:10 Home Medications Home Medications Medication Instructions Recorded Confirmed Type No Known Home Medications 09/29/19 09/29/19 History Patient History Medical History No significant past medical history Social History Preferred Language: Burkinan Communication Ability: Effective Water Inspector Required: No Beliefs That Will Affect Care: None Current Living Situation: Family Other Information That Helps Us Care for You: No Feels Safe at Home: Yes Safety Concerns: Feels Safe At This Time Smoking Status: Never smoker Hx Alcohol Use: No Hx Substance Use: No Review of Systems Review of Systems: All systems reviewed & are unremarkable except as noted in HPI & below Physical Exam Constitutional: comfortable; no acute distress, not ill appearing, no altered mental status and not lethargic Eyes: no nystagmus ENMT: Ears: no hearing impairment Neck: trachea midline Respiratory: no respiratory distress, does not use accessory muscles, no cough and no grunting Cardiovascular: Vessels: no JVD Extremities: no edema Chest (Breasts): Chest: normal inspection of chest Gastrointestinal (Abdomen): Inspection/Auscultation: abdomen not distended and no abdominal edema Percussion/Palpation: abdomen soft; abdomen nontender Musculoskeletal: no cyanosis or clubbing, extremities motor strength 5/5 Head/Neck/Chest: normocephalic and head atraumatic Extremities: extremities normal to inspection Skin: no rashes, warm and dry Neurologic: awake; not confused and not obtunded Psychiatric: Orientation: alert and oriented x 3 Eye Contact: good eye contact Affect: no depressed affect Genitourinary: no CVA tenderness Connolly catheter intact draining clear yellow urine. Lymphatic: no lymphadenopathy and no lymphedema Results & Data Vital Signs (Past 12 Hours) Vital Signs Temp Pulse Pulse Resp BP BP BP 09/30/19 08:38 164/92 H 162/98 H 09/30/19 07:45 36.5 C 81 20 181/103 H 09/30/19 02:05 105 H 09/30/19 02:00 36.3 C L 93 H 20 150/71 H 09/30/19 01:56 96 H 18 162/103 H 09/30/19 01:30 87 13 09/30/19 01:01 92 H 11 L 09/30/19 01:00 95 H 14 164/104 H 09/30/19 00:45 91 H 14 09/30/19 00:30 89 14 09/30/19 00:16 98 H 16 09/30/19 00:15 94 H 17 156/100 H 09/30/19 00:01 98 H 14 159/102 H 09/30/19 00:00 100 H 19 09/29/19 23:48 105 H 18 157/102 H 09/29/19 23:46 95 H 22 09/29/19 23:45 104 H 19 157/102 H 09/29/19 23:44 19 09/29/19 23:16 105 H 24 09/29/19 23:15 92 H 25 H 176/102 H 09/29/19 23:00 90 24 163/104 H 09/29/19 22:48 91 H 24 175/118 H 09/29/19 22:45 94 H 22 09/29/19 22:30 88 20 09/29/19 22:15 82 20 09/29/19 22:00 78 15 09/29/19 21:49 81 20 Pulse Ox 09/30/19 08:38 09/30/19 07:45 96 09/30/19 02:05 09/30/19 02:00 96 09/30/19 01:56 97 09/30/19 01:30 95 09/30/19 01:01 93 09/30/19 01:00 94 09/30/19 00:45 95 09/30/19 00:30 95 09/30/19 00:16 95 09/30/19 00:15 94 09/30/19 00:01 96 09/30/19 00:00 97 09/29/19 23:48 98 09/29/19 23:46 97 09/29/19 23:45 97 09/29/19 23:44 09/29/19 23:16 09/29/19 23:15 09/29/19 23:00 98 09/29/19 22:48 99 09/29/19 22:45 09/29/19 22:30 09/29/19 22:15 09/29/19 22:00 09/29/19 21:49 Laboratory Results Laboratory Results - last 48 hr 09/29/19 09/29/19 09/29/19 21:06 21:06 21:06 WBC 23.87 H RBC 6.23 H Hgb 20.0 H Hct 55.3 H MCV 88.8 MCH 32.1 MCHC 36.2 H RDW Std Deviation 41.3 RDW Coeff of Tatiana 12.8 Plt Count 340 MPV 10.4 Immature Gran % (Auto) 0.7 Neut % (Auto) 84.6 Lymph % (Auto) 5.9 [place] % (Auto) 8.8 Eos % (Auto) 0.0 Baso % (Auto) 0.0 Immature Gran # (Auto) 0.17 H Neut # (Auto) 20.19 H Lymph # (Auto) 1.40 [place] # (Auto) 2.10 H Eos # (Auto) 0.00 Baso # (Auto) 0.01 Sodium 124 L Potassium 5.5 H Chloride 92 L Carbon Dioxide 19 L Anion Gap 14.0 H BUN 84 H Creatinine 4.04 H Est Cr Clr Drug Dosing 19.1 Est GFR ( Amer) 17.2 Est GFR (Non-Af Amer) 14.8 BUN/Creatinine Ratio 20.8 H Glucose 180 H POC Glucose Lactate 3.6 H* Calcium 10.0 Phosphorus Magnesium 3.8 H Total Bilirubin 1.0 Direct Bilirubin 0.1 AST 45 H ALT 28 Alkaline Phosphatase 111 Total Protein 9.8 H Albumin 4.8 Lipase 369 Urine Color Urine Appearance Urine pH Ur Specific [place] Urine Protein Urine Glucose (UA) Urine Ketones Urine Blood Urine Nitrite Urine Bilirubin Urine Urobilinogen Ur Leukocyte Esterase Urine WBC (Auto) Urine RBC (Auto) U Hyaline Cast (Auto) U Epithel Cells (Auto) Urine Bacteria (Auto) Urine Yeast Influenza Type A Ag Influenza Type B Ag 09/29/19 09/29/19 09/30/19 21:15 23:01 00:49 WBC RBC Hgb Hct MCV MCH MCHC RDW Std Deviation RDW Coeff of Tatiana Plt Count MPV Immature Gran % (Auto) Neut % (Auto) Lymph % (Auto) [place] % (Auto) Eos % (Auto) Baso % (Auto) Immature Gran # (Auto) Neut # (Auto) Lymph # (Auto) [place] # (Auto) Eos # (Auto) Baso # (Auto) Sodium Potassium Chloride Carbon Dioxide Anion Gap BUN Creatinine Est Cr Clr Drug Dosing Est GFR ( Amer) Est GFR (Non-Af Amer) BUN/Creatinine Ratio Glucose POC Glucose 115 H Lactate 2.2 H* Calcium Phosphorus Magnesium Total Bilirubin Direct Bilirubin AST ALT Alkaline Phosphatase Total Protein Albumin Lipase Urine Color Dark Yellow Urine Appearance Cloudy A Urine pH 5.0 Ur Specific [place] 1.030 Urine Protein 1+ H Urine Glucose (UA) Negative Urine Ketones Trace H Urine Blood Negative Urine Nitrite Negative Urine Bilirubin Negative Urine Urobilinogen Negative Ur Leukocyte Esterase Negative Urine WBC (Auto) 1-5 Urine RBC (Auto) 0-4 U Hyaline Cast (Auto) >30 H U Epithel Cells (Auto) 20-30 H Urine Bacteria (Auto) Negative Urine Yeast Not Reportable Influenza Type A Ag Influenza Type B Ag 09/30/19 09/30/19 09/30/19 02:35 05:29 05:29 WBC 20.11 H RBC 5.34 Hgb 16.7 D Hct 47.7 MCV 89.3 MCH 31.3 MCHC 35.0 RDW Std Deviation 42.0 RDW Coeff of Tatiana 12.9 Plt Count 240 MPV 10.1 Immature Gran % (Auto) 0.5 Neut % (Auto) 79.9 Lymph % (Auto) 6.0 [place] % (Auto) 13.6 Eos % (Auto) 0.0 Baso % (Auto) 0.0 Immature Gran # (Auto) 0.10 H Neut # (Auto) 16.06 H Lymph # (Auto) 1.20 [place] # (Auto) 2.74 H Eos # (Auto) 0.00 Baso # (Auto) 0.01 Sodium 133 L D Potassium 4.5 D Chloride 102 Carbon Dioxide 23 Anion Gap 8.0 BUN 72 H Creatinine 2.71 H D Est Cr Clr Drug Dosing 29.2 Est GFR ( Amer) 27.9 Est GFR (Non-Af Amer) 24.1 BUN/Creatinine Ratio 26.6 H Glucose 131 H POC Glucose Lactate Calcium 8.3 L D Phosphorus 4.2 Magnesium Total Bilirubin Direct Bilirubin AST ALT Alkaline Phosphatase Total Protein Albumin 3.4 Lipase Urine Color Urine Appearance Urine pH Ur Specific [place] Urine Protein Urine Glucose (UA) Urine Ketones Urine Blood Urine Nitrite Urine Bilirubin Urine Urobilinogen Ur Leukocyte Esterase Urine WBC (Auto) Urine RBC (Auto) U Hyaline Cast (Auto) U Epithel Cells (Auto) Urine Bacteria (Auto) Urine Yeast Influenza Type A Ag Neg for Influ A Influenza Type B Ag Neg for Influ B PG Care Time/CCT Total # of Minutes Spent Total Time Spent with Patient: Total time spent is greater than 50% in coordination of care (as documented) at patient's floor/unit and/or counseling patient: Coding Level of Care Code 14271 Inpt Consult Level 4 Diagnoses Sepsis A41.9 SUSANA (acute kidney injury) N17.9 BPH loc w urin obs/LUTS N40.1 Left ureteral stone N20.1
--- NOTE | 2019-09-30 10:40 | Anesthesiology Consultation ---
Date of Service September 30, 2019 Assessment & Plan (1) Encounter for pre-operative examination: Chart Review Chart Review: Acceptable Risk for Surgery and Patient NOT seen in Pre Admission Testing Consults Requested none -Patient last ate at 7:30 am 09/30/2019 - reports "5 bites of eggs and half piece of toast". History Surgery Operation Date: 09/30/19 16:00 Proposed Procedures p Cystoscopy, Left Retrograde Pyelogram and Stent Placement - Gabe Parker MD Height/Weight Height: 6 ft 1 in Weight: 73 kg Allergies Allergy/AdvReac Type Severity Reaction Status Date / Time codeine Allergy Intermediate n/v Verified 09/29/19 23:10 Medications Home Medications Medication Instructions Recorded Confirmed Last Taken No Known Home Medications 09/29/19 09/29/19 Unknown Active Medications Generic Name Dose Route Start Last Admin Trade Name Freq PRN Reason Stop Dose Admin Sodium Chloride 1,000 mls @ 125 mls/hr 09/29/19 23:45 09/30/19 10:20 Nss 1000ml IV 10/29/19 23:44 125 mls/hr .Q8H DEVIN Administration Ceftriaxone Sodium 1,000 mg/ 60 mls @ 100 mls/hr 09/30/19 09:00 09/30/19 09:18 Dextrose IV 10/10/19 08:59 Infused DAILY DEVIN Infusion Protocol Daptomycin 450 mg/ Syringe 9 mls @ 4.5 mls/min 09/30/19 04:00 09/30/19 03:33 IV 10/10/19 03:59 4.5 mls/min Q2D@0400 DEVIN Administration Protocol Past Medical History Medical History (Updated 09/30/19 @ 10:43 by Derek Anders MD) SUSANA (acute kidney injury) (Acute) Hyperkalemia (Acute) Potassium level was 5.5 upon admission. He received 2 L normal saline, Kayexalate, calcium gluconate 1 g IV and 1 amp of D50 with 10 units of regular insulin IV as ordered by the ED. Hyponatremia (Acute) Hyponatremia secondary to acute kidney injury due to moderately severe dehydration. Left ureteral stone No significant past medical history Sepsis (Acute) Sepsis due to presumed prostatitis/moderately severe dehydration/BPH with OBST,LUTS- Patient did receive 2 L normal saline bolus per septic protocol in the ED. Patient was given vancomycin IV and cefepime IV in the ED. Urinary retention with incomplete bladder emptying Social History Smoking Status: Never smoker Hx Alcohol Use: No Hx Substance Use: No Physical Exam Vital Signs Last Vital Signs Temp 36.5 C 09/30/19 07:45 Pulse 66 09/30/19 10:26 Resp 20 09/30/19 07:45 BP 186/96 H 09/30/19 10:26 Pulse Ox 96 09/30/19 07:45 Testing Laboratory Results 09/30/19 05:29 09/30/19 05:29 Urine Color Dark Yellow 09/29/19 21:15 Urine Appearance Cloudy (Clear) A 09/29/19 21:15 Urine pH 5.0 (4.5-7.5) 09/29/19 21:15 Ur Specific [place] 1.030 (1.000-1.030) 09/29/19 21:15 Urine Protein 1+ (Negative) H 09/29/19 21:15 Urine Glucose (UA) Negative (Negative) 09/29/19 21:15 Urine Ketones Trace (Negative) H 09/29/19 21:15 Urine Nitrite Negative (Negative) 09/29/19 21:15 Ur Leukocyte Esterase Negative (Negative) 09/29/19 21:15 Urine WBC (Auto) 1-5 /hpf (0-5) 09/29/19 21:15 Urine RBC (Auto) 0-4 /hpf (0-4) 09/29/19 21:15 U Hyaline Cast (Auto) >30 /lpf (0-5) H 09/29/19 21:15 U Epithel Cells (Auto) 20-30 /lpf (0-5) H 09/29/19 21:15 Urine Bacteria (Auto) Negative (Negative) 09/29/19 21:15 09/30/19 00:49 POC Glucose 115 H Electrocardiogram Date: 09/29/19 Findings: + NSR @ (79) Normal sinus rhythm Normal ECG No previous ECGs available Chest X-Ray Date: 09/29/19 XR chest 1V portable CLINICAL HISTORY: Fever. Evaluate for pneumonia. COMPARISON STUDY: No previous studies for comparison. FINDINGS: Lung volumes are normal. Lungs are clear. There is no pneumothorax or pleural effusion. Cardiac size is normal. Mediastinal contours are normal. There is no evidence for pulmonary edema. IMPRESSION: No acute cardiopulmonary findings.
--- NOTE | 2019-09-30 12:02 | Electrocardiogram Report ---
Test Reason : Blood Pressure : / mmHG Vent. Rate : 079 BPM Atrial Rate : 079 BPM P-R Int : 160 ms QRS Dur : 116 ms QT Int : 384 ms P-R-T Axes : 057 071 059 degrees QTc Int : 440 ms Normal sinus rhythm Normal ECG No previous ECGs available Confirmed by Piotr Gonzáles ([id number]) on 09/30/2019 12:01:40 PM Referred By: REFERRED SELF Confirmed By:Piotr Gonzáles
[2019-09-30] MEDS ORDERED: ePHEDrine sulfate 50 MG/ML SYR ONE (15:12)
[2019-09-30] MEDS ORDERED: PROPOFOL IV EMULSION 10 MG/ML 20 ML VIAL IV ONE (15:12)
[2019-09-30] MEDS ORDERED: PHENYLEPHRINE 100MCG/ML 5ML SYR ONE (15:12)
[2019-09-30] MEDS ORDERED: fentaNYL citrate 100 MCG/2 ML VIAL ONE (15:12)
[2019-09-30] MEDS ORDERED: ONDANSETRON INJ 2 MG/ML 2 ML VIAL ONE (15:12)
[2019-09-30] MEDS ORDERED: MIDAZOLAM HCL 1 MG/ML 2ML VIAL ONE (15:12)
[2019-09-30] MEDS ORDERED: LIDOCAINE HCL 2% 2 ML VIAL/AMP(20MG/ML) INFIL ONE (15:12)
[2019-09-30] MEDS ORDERED: IOTHALAMATE MEGLUMINE II 17.2% 250 ML VIAL ONE (15:39)
[2019-09-30] MEDS ORDERED: LABETALOL HCL IV 5 MG/ML 20ML IV PRN (16:13)
[2019-09-30] MEDS ORDERED: ePHEDrine sulfate 50 MG/ML AMP IV PRN (16:13)
[2019-09-30] MEDS ORDERED: fentaNYL citrate 100 MCG/2 ML VIAL IV PRN (16:13)
[2019-09-30] MEDS ORDERED: FLUMAZENIL 0.1 MG/1 ML 10 ML VIAL IV PRN (16:13)
[2019-09-30] MEDS ORDERED: NALOXONE HCL 0.4 MG/1 ML VIAL/CARP IV PRN (16:13)
[2019-09-30] MEDS ORDERED: ATROPINE SULFATE 0.1 MG/ML 10ML SYR IV PRN (16:13)
[2019-09-30] MEDS ORDERED: PROMETHAZINE HCL 12.5 MG in SODIUM CHLORIDE 0.9% 50 ML IV PRN (16:13)
[2019-09-30] MEDS ORDERED: DEXAMETHASONE SOD INJ 4 MG/ML VIAL ONE (16:32)
--- NOTE | 2019-09-30 16:51 | Operative Report ---
PG Post Operative Report Pre & Post Diagnosis Operation Date: 09/30/19 16:00 <No data on this case meets the specified criteria> I identified the patient and participated in the time-out.: Yes Procedure Operation Date: 09/30/19 16:00 <No data on this case meets the specified criteria> Surgeon Ravin Parker MD Welding Machine Operator/Tender none Estimated Blood Loss 0 Findings Consistent with Post-Op Diagnosis Specimens none Description of Procedure The patient was identified in the preopertive holding area, appropriate informed consents were reviewed and completed and the patient was transferred to the operative suite. Upon arrival, appropriate antibiotics and anesthesia were administered and the patient was placed in dorsal lithotomy position and prepped and draped in sterile fashion. To begin the case a 22 [place]ian cystoscope was inserted per urethra. Inspection revealed no evidence of stricture disease and a moderately enlarged prostate with a slightly high bladder neck. Inspection of the bladder revealed healthy- appearing organ without mucosal disease. He has moderately trabeculated, ureteral orifices were in orthotopic position. I turned my attention to the left UO and cannulated with a sensor wire and a 5 [place]ian open-ended catheter. I felt resistance in the mid ureter and believe I could see the stone on fluoroscopyhoweverit was not perfectly clear. I advanced the wire to the level of the kidney and then inserted a 6 [place]ian by 26 cm double-J ureteral stent. There was immediately discharge of old blood and urine from the kidney with mixed debris. After observing drainage for some time and irrigating this debris out of the bladder I concluded the case. A 16 [place]ian Garza catheter was reinserted and the case concluded. The patient was extubated and taken to the PACU in stable condition. There were no complications. I attest to the content of the Intraoperative Record and any orders documented therein. Any exceptions are noted below.
--- NOTE | 2019-09-30 17:25 | Fluoroscopy Report ---
FL KUB CLINICAL HISTORY: Left ureteral stent placement. COMPARISON STUDY: Abdomen and pelvis CT 09/29/2019. FLUOROSCOPY TIME: 7 seconds.. FINDINGS: 2 fluoroscopic spot images demonstrate a guidewire within the left ureter placed in a retro grade fashion followed by placement of a left ureteral stent. Only the proximal portion of the stent is identified which appears in good position. IMPRESSION: Fluoroscopy provided for left ureteral stent placement which appears in good position. ACT 112: Negative or not required by law. Electronically signed by: Juan Pablo Peters M.D. 09/30/2019 5:24 PM
--- NOTE | 2019-09-30 20:24 | Hospitalist Progress Note ---
Date of Service September 30, 2019 Assessment & Plan (1) Sepsis: 64 yo male with no significant pMHx. with 3 days of persistent fevers, chills, and nausea. Found to have sepsis and CT Abd/pel: mild - moderate L sided hydronephrosis 2/2 [id number] calculus of the mid left ureter at level of L5 with planned cystoscopy L retrograde pyelogram and stent. Urosepsis 2/2 obstructing ureteral calculus - continue Ceftriaxone - discontinued Daptomycin - follow urine cultures and sensitivities - IV fluid rehydration - Urology consulted and planned procedure today SUSANA 2/2 post-renal obstruction - Cr. 2.71 improved from 4.04 - continue to monitor Hyperkalemia - was 5.5 on admission, he received 2L NS, Kayexalate, santosh gluc 1g IV and 1 amp D50 w/ 10 u regular insulin IV ordered by ED - level 4.5 this AM - will continue to monitor with AM BMP HTN - not on any home medications - elevated into the 180's systolic asymptomatic - continue to monitor DVT: no chemoprophylaxis given planned procedure FEN/GI: NPO for procedure Code: full Supervising Physician Co-Signing Physician Notes I personally examined the patient and verified all xavier points of history and exam, discussed case, and agree with decision making with Dr Buitrago feeling better than when admitted - was seen immediately before cysto. urology assistance greatly appreciated. seen in f/u from same date admission vitals noted nad breathing unlabored no accessory muscle use good effort no pallor or icterus. UTI/sepsis/pyelonephritis from ureterolithiasis, subsequent ARF - improving on fluids and antibiotics, anticipate further improvement when obstruction alleviated. continue current care pending cysto. otherwise as above Subjective Doing okay this morning. He has 2/10 suprapubic pain and is sleepy. He had no questions for the team this morning. Review of Systems Constitutional: + fever (admitted fevers overnight); no chills Respiratory: no cough and no sputum production denies shortness of breath Cardiovascular: no chest pain and no palpitations Gastrointestinal: no nausea and no vomiting Physical Exam Constitutional: WD/WN, vitals as above Eyes: PERRL, conjunctivae normal, anicteric sclerae ENMT: external ear and nose normal, oropharynx normal Neck: trachea midline Respiratory: normal respiratory effort, lungs clear to auscultation Cardiovascular: RRR, no murmur, no edema Extremities: normal capillary refill; no edema Gastrointestinal (Abdomen): Inspection/Auscultation: abdomen normal to inspection and normal bowel sounds; abdomen not distended Percussion/Palpation: + abdomen tender (tender in the LLQ, suprapubic area); no guarding and abdomen not rigid Skin: no rashes, warm and dry Results & Data ([facility]) Vital Signs (Past 12 Hours) Vital Signs Temp Pulse Pulse Pulse Pulse Resp BP 09/30/19 19:40 36.8 C 81 20 180/98 H 09/30/19 18:35 81 17 194/100 H 09/30/19 18:27 68 17 175/118 H 09/30/19 18:05 64 17 188/101 H 09/30/19 17:50 37.0 C 67 17 189/108 H 09/30/19 17:30 36.5 C 65 17 157/97 H 09/30/19 17:20 69 13 168/91 H 09/30/19 17:10 74 12 153/99 H 09/30/19 17:00 64 16 136/82 09/30/19 16:54 36.3 C L 62 16 109/63 09/30/19 15:50 72 16 09/30/19 15:20 36.4 C L 75 20 09/30/19 12:31 85 09/30/19 10:26 66 09/30/19 08:38 164/92 H BP Pulse Ox 09/30/19 19:40 98 09/30/19 18:35 99 09/30/19 18:27 99 09/30/19 18:05 99 09/30/19 17:50 99 09/30/19 17:30 99 09/30/19 17:20 98 09/30/19 17:10 99 09/30/19 17:00 99 09/30/19 16:54 99 09/30/19 15:50 142/96 H 95 09/30/19 15:20 147/88 H 95 09/30/19 12:31 09/30/19 10:26 186/96 H 09/30/19 08:38 162/98 H Resident Activity Tracking Resident Involvement: Resident Care Provided Care Provided: Adult [facility] Medicine
[2019-09-30] MEDS ORDERED: TAMSULOSIN HCL 0.4 MG CAP PO SCH (21:00)
[2019-10-01] MEDS: SODIUM CHLORIDE 0.9% 1000ML 1,000 ML IV SCH ×3 (00:52→10:10)
[2019-10-01 05:30] LABS: Hematocrit (blood only) 44.7 % (42-52); Hemoglobin 15.5 g/dL (14.0-18.0); Immature Granulocytes # (auto) 0.04 K/uL (0.00-0.02); Immature Granulocytes % (auto) 0.3 %; Lymphocytes # (auto) 1.26 K/uL (1.2-3.4); Lymphocytes % (auto) 10.8 %; Mean Corpuscular Hemoglobin 31.6 pg (25-34); Mean Corpuscular Hgb Conc 34.7 g/dL (32-36); Mean Platelet Volume 9.8 fL (7.4-10.4); Monocytes # (auto) 1.27 K/uL (0.11-0.59); Monocytes % (auto) 10.9 %; Neutrophils # (auto) 9.13 K/uL (1.4-6.5); Platelet Count 213 K/uL (130-400); RDW Coefficient of Variation 12.8 % (11.5-14.5); RDW Standard Deviation 42.6 fL (36.4-46.3); Red Blood Count 4.91 M/uL (4.7-6.1)
[2019-10-01 06:16] LABS: Albumin Level 2.9 gm/dl (3.4-5.0); BUN Creatinine Ratio 32.8 (10-20); Calcium 8.2 mg/dl (8.5-10.1); Creatinine Clr Calc Pharmacy 61.3 ml/min; Est GFR (African American) 68.4; Phosphorus 3.2 mg/dl (2.5-4.9); Potassium 4.6 mmol/L (3.5-5.1); Prostate Specific Antigen 0.618 ng/ml (0-4)
--- NOTE | 2019-10-01 09:23 | Urology Progress Note ---
Date of Service October 01, 2019 Assessment & Plan (1) Sepsis: Urosepsis from obstructing left ureteral stone Status post stent Substantially improved with stenting and antibiotics DC Garza catheter Ambulate -Unfortunately the urine bladder did not grow bacteria and I suspect his infection was trapped in the kidney meaning we do not have appropriate speciation of bacteria to the best gauge oral antibiotics That said I think we can taper him to an oral medication and have him complete a 10 to 14-day course and outpatient follow-up for definitive treatment of the stone Subjective Subjectively reports he is much improved He is not having chills or rigors Pain is gone Urine draining well from a catheter Overall quite content with his current status Review of Systems Review of Systems: All systems reviewed & are unremarkable except as noted in HPI & below Physical Exam Physical Exam: Clear urine No apparent distress Comfortable appearing Abdomen softno CVA tenderness Results & Data Vital Signs (Past 12 Hours) Vital Signs Temp Pulse Pulse Resp BP Pulse Ox 10/01/19 08:00 68 10/01/19 06:35 36.8 C 68 20 158/75 H 95 10/01/19 03:51 36.6 C 62 20 153/83 H 95 09/30/19 23:41 36.8 C 70 18 155/86 H 95 PG Care Time/CCT Total # of Minutes Spent Total Time Spent with Patient: Total time spent is greater than 50% in coordination of care (as documented) at patient's floor/unit and/or counseling patient: Coding Level of Care Code 93360 Subseq Hosp Care Lvl 3 Diagnoses Sepsis A41.9
[2019-10-01] MEDS: cefTRIAXone SODIUM 1,000 MG in DEXTROSE 5% 50 ML IV SCH (09:58)
--- NOTE | 2019-10-01 16:57 | Discharge Summary ---
Date of Service October 01, 2019 Admission HPI Per Admitting Provider The patient is a 64-year-old male with no significant past medical history, who presents to the emergency department with 3 days of persistent symptoms of intermittent fevers, chills and shakes. He denies any recent travels or sick exposures. He had significantly decreased oral intake to both liquids and solids during this time as well. Work-up in the emergency department included abnormal laboratories suggesting acute neutrophilic leukocytosis, hyperglycemia, lactic acidosis, acute renal failure and polycythemia, suggestive of significant dehydration. Imaging studies included CT of the abdomen pelvis which showed thick-walled urinary bladder. Patient did have Garza catheter placed in the ED. For a potassium of 5.5, he was given, in addition to the septic protocol 2 L normal saline, he was also given 1 amp of D50 +10 units of regular insulin IV, calcium gluconate 1 g IV and Kayexalate by the ED protocols. The patient also did report frequent bowel movements and urination as he was attempting to treat himself with frequent soaks, interspersed with resting in bed. Principal Diagnosis sepsis from UTI/pyelonephritis complicated by obstructing ureterolithiasis ARF secondary to above Discharge Exam gen aaox3 pleasant nad heent nc at mmm breathing unlabored no accessory muscles good effort skin no rashes no pallor or icterus no focal neuro deficits mental status intact Discharge Data Allergies Allergy/AdvReac Type Severity Reaction Status Date / Time codeine Allergy Intermediate n/v Verified 09/29/19 23:10 Consultations 09/30/19 00:23 ED Decision to Admit Stat 09/30/19 02:20 Consult Case Management - Discharge Planning Routine Consult Urology Routine Procedures Performed Operation Date: 09/30/19 16:00 Actual Procedures p Cystoscopy, Left ureteral Stent Placement(Left) - Gabe Parker MD Ordered Studies 09/29/19 21:57 CT abd pelvis wo con Urgent ABDOMEN AND PELVIS CT WITHOUT CONTRAST CT DOSE: 320.23 mGy.cm HISTORY: Acute dysuria with fever dysuria fever TECHNIQUE: Multiaxial CT images of the abdomen and pelvis were performed without contrast. A dose lowering technique was utilized adhering to the principles of ALARA. COMPARISON STUDY: Chest radiograph of same day FINDINGS: Moderate emphysema with bronchitis. No pneumatosis or pneumoperitoneum. Coronary arterial calcifications are noted. No pericardial effusion. Limited evaluation of the solid abdominal organs without the use of IV contrast. Spleen, pancreas and right adrenal gland are unremarkable. Mild leftward gland thickening suggests hyperplasia. Equivocal gallbladder sludge. No cholelithiasis or so nographic evidence of acute cholecystitis. Unenhanced liver is unremarkable. Mild to moderate left-sided hydroureteronephrosis secondary to an obstructing 5 x 4 x 5 mm calculus of the left ureter at the level of L5, image 241 series 3. 5 mm nonobstructing calculus of the inferior pole left kidney. There are several hypodensities of the left kidney suggestive of probable cysts measuring up to 5.2 cm. Mild perinephric and periureteral inflammatory stranding. Bladder wall thickening with Garza catheter in place. Air within the bladder lumen is likely secondary to instrumentation. Prostamegaly. Suggestion of a small fat filled left inguinal hernia. Calcified plaque of the abdominal aorta without aneurysm. Left-sided IVC. No adenopathy. No bowel obstruction or bowel wall thickening. Terminal ileum and appendix are unremarkable. Tiny fat filled periumbilical hernia. Unremarkable soft tissues. Degenerative changes of the spine, pelvis and hips includes severe disc space narrowing at L4-L5 and L5-S1. IMPRESSION: 1. Mild to moderate left-sided hydroureteronephrosis secondary to a 5 x 4 x 5 mm calculus of the mid left ureter at the level of L5. This finding was called/faxed to the floor at time of dictation. 2. Nonobstructing left nephrolithiasis. 3. Multiple left-sided renal hypodensities suggest probable cyst. 4. No bowel obstruction or bowel wall thickening. 5. Left-sided IVC. 6. Additional findings as above. 09/30/19 16:00 FL KUB Routine Hospital Course (1) Sepsis: sepsis from UTI/pyelonephritis complicated by obstructing ureterolithiasis -improving nicely -stable s/p cysto and stenting; improved on ceftriaxone, stable for discharge on cefdinir - presumed 14 day course of treatment, although if he continues to show dramatic improvement (and blood cultures continue to be negative) possibly course could be shortened to 10 days as outpt -----discharge to home, close outpt f/u, cefdinir starting tomorrow PO -outpt urology f/u for stent removal/stone management ARF -from sepsis - Cr was 4 on admit, 1.3 now. outpt BMP ~later this week/early next. PO intake HTN -has had elevated blood pressures most of the time throughout his stay. on discussion with pt, he does follow BP at home and notes roughly stage 1 numbers frequently, but has been making lifestyle changes to try to improve numbers (most notably stopping smoking). applauded smoke cessation, encouraged more exercise (he does 2-3 days a week, encouraged goal of 30mins light cardio daily if possible) and he notes that he tries to eat healthy (but seems to fall into a number of [id number] foods) encouraged <2g Na and mediterannean style eating -f/u PCP in regards to ongoing readings at home - may need Rx in the future but no urgency now- and markedly high numbers were all almost certainly reactive. hyponatremia - from above as well - improved from admit of 124 to now 134. BMP as above hyperkalemia -on admission - from ARF/sepsis - improved. polycythemia on admission - most likely was from volume contraction - since has normalized. Total Time Total Time Spent Total Time Spent (In Minutes): >30 Discharge Plan Discharge Items Patient Disposition: Home - Self-Care Reason For Visit: SEPSIS DUE TO UTI, ARF Discharge Diagnosis: ureteral stone Activity: Per Instructions section Non-emergency contact: Primary Care Provider and Urologist Call non-emergency contact if: your temperature is above 101.5 Follow-up/Referrals: Daksha Franco MD [Primary Care Provider] - 10/08/19 9:15 am (Please follow up at [facility] with Dr. Franco on SundayOctober 08 at 9:15 am. Please arrive to the office at 9:05 am. Please bring a form of ID and your insurance card with you. *If you need to change this appointment, call the office at [phone].) Diet: Regular Addtl Attending Provider Instructions: Kidney stones - nephrolithiasis You were admitted for fevers, chills and nausea. With imaging of your abdomen were able to see a stone within your ureter. This stone was blocking the flow of urine from your kidneys to your bladder. We consulted urology and they scheduled you for a procedure to place a stent around the stone. The procedure was on 09/30 and they were able to place the stent successfully. You had improvement in your pain after the procedure. You will want to ensure that you are well hydrated after leaving the hospital since you were found to be dehydrated when you came to the hospital and this could worsen kidney stones. Elevated blood pressure You were found to have an elevated blood pressure while in the hospital. normal blood pressure is below 140 over 90's. Your blood pressure in the hospital was in the 180's over 100's. continue to monitor your blood pressures at home and report these to your PCP for further management. Keep working at your diet to improve the amount of fruits and vegetables you eat and aim to aerobically exercise about 30 minutes a day. Medications You will continue to take a oral antibiotic to treat the infection that was in your kidneys. you will take this for a total of 14 days. The last day of treatment will be the . Return precautions return precautions include: fevers, chills, nausea, back or abdominal pain that may occur as waves of intense pain. Most people with kidney stones will have have blood in your urine, but it this will likely improve over the next several days. Follow Up You will follow up with urology to treat your stones. You will need to follow up with your primary care doctor for your blood pressure and to monitor your kidney function and white blood cell counts. Pending Studies at Discharge: Yes Studies:: blood cultures Stand-Alone Forms: My [facility] [employer], Smoking Cessation Medications and DC Order Prescriptions: New cefdinir 300 mg capsule 300 mg PO BID 12 Days Qty: 24 RF: 0 No Action No Known Home Medications RF: 0 Discharge Orders: Discharge Order (Routine); Ordered 10/01/19 Ordered By: Easton Solomon/Other Patient Handouts: Kidney Stones, Acute Kidney Injury Dc Admission Data Admit Date/Time: 09/30/19 01:15 Attending Provider: Easton Farley Admit Provider: Addison Abad Primary Care Provider: Daksha Franco Other Providers: Addison Abad ; Gabe Parker Other Interventions: Discharge Summary Assessment (RN) Last Done: 10/01/19 10:37 DC Date/Time DO NOT enter until pt leaves facility: 10/01/19 13:01 Coding Level of Care Code D/C Day Management >30 mins Diagnoses Sepsis A41.9
--- NOTE | 2019-10-02 14:03 | Anesthesiology Progress Note ---
Date of Service October 02, 2019 Anesthesia Post Procedure Transfer of Care Handoff Completed per policy Notes Mental Status: alert / awake / arousable Patient Amnestic to Procedure: Yes Nausea / Vomiting: adequately controlled Pain: adequately controlled Airway Patency, RR, SpO2: stable & adequate BP & HR: stable & adequate Hydration State: stable & adequate Anesthetic Complications: no major complications apparent
== END 2019-10-01 13:01 | disposition home or self-care (01) | DRG 854 ==
LOC: ED 20:43 → 2S 09-30 01:15 → INTOOBSV 09-30 01:15 → SUATTDRO 09-30 01:15 → 2S 09-30 01:56